=== PATIENT | male | born 1995 | race Two or more races ===

== ENCOUNTER 2020-12-10 12:10 | Emergency (ER) | payer MEDICAID, OTHER ==
[~2020-12-10] VITALS: Ht 170.2 cm; Wt 91.0 kg
[2020-12-10 13:50] LABS: Urine Bacteria NONE SEEN /hpf (None Seen); Urine Blood Negative /uL (Negative); Urine Mucus FEW (None Seen); Urine Specific Gravity 1.032 (1.001-1.035); Urine WBC 1 /hpf (0 - 3)
[2020-12-10 13:52] LABS: Alcohol, Urine < 3.0 mg/dL (0-10); Amphetamine Screen, Urine NEGATIVE (NEGATIVE); Barbiturate Scree,Urine NEGATIVE (NEGATIVE); Benzodiazephine Screen, Urine NEGATIVE (NEGATIVE); Cannabinoid Screen, Urine NEGATIVE (NEGATIVE); Cocaine Screen, Urine NEGATIVE (NEGATIVE); Opiate Scree,Urine NEGATIVE (NEGATIVE); Phencyclidine Screen, Urine NEGATIVE (NEGATIVE)
[2020-12-10 14:08] LABS: Basophils # (auto) 0 10 ^3/uL (0-0.2); Basophils % (auto) 0.5 % (0.0-2.0); Eosinophils # (auto) 0.3 10 ^3/uL (0-0.8); Eosinophils % (auto) 3.4 % (0.0-7.0); Hematocrit 46.9 % (41.0-53.0); Hemoglobin 16.5 g/dL (13.5-17.5); Lymphocytes # (auto) 2.2 10 ^3/uL (0.4-5.4); Lymphocytes % (auto) 22.2 % (10.0-50.0); Mean Corpuscular Hemoglobin 29.4 pg (28.0-32.0); Mean Corpuscular Hgb Conc. 35.2 g/dL (32.0-36.0); Mean Corpuscular Volume 83.4 fL (80.0-100.0); Monocytes # (auto) 0.6 10 ^3/uL (0-1.3); Monocytes % (auto) 6.3 % (0.0-12.0); Neutrophils # (auto) 6.6 10 ^3/uL (1.6-8.6); Neutrophils % (auto) 67.6 % (37.0-80.0); Nucleated Red Blood Cells % 0.9 %; Red Blood Cells 5.63 10^6/uL (4.5-5.90); Red Cell Distribution Width 13.2 % (11.8-14.3); White Blood Cell 9.8 10^3/uL (4.4-10.8)
[2020-12-10 14:33] LABS: Albumin 4.5 g/dL (3.4-5.0); Anion Gap 6 (5-15); Blood Urea Nitrogen 15 mg/dL (7-18); Calcium 8.6 mg/dL (8.5-10.1); Carbon Dioxide 24 mmol/L (21-32); Chloride 109 mmol/L (98-107); Glucose 84 mg/dL (74-106); Potassium 4.1 mmol/L (3.5-5.1); Sodium 139 mmol/L (136-145)
[2020-12-10 14:38] LABS: Alanine Aminotransferase 27 U/L (16-61); Alkaline Phosphatase 70 U/L (45-117); Aspartate Aminotransferase 16 U/L (15-37); BUN/Creatinine Ratio 17.9; Bilirubin, Total 0.8 mg/dL (0.2-1.0); GFR African American 143 mL/min; GFR Non-African American 118 mL/min; Total Protein 8.5 g/dL (6.4-8.2)
[2020-12-10 16:29] VITALS: BP 116/61
== END 2020-12-10 16:32 | disposition home or self-care (01) ==
LOC: ER 12:10
DX: S16.1XXA Strain of muscle, fascia and tendon at neck level, initial encounter (principal); M62.838 Other muscle spasm; E78.5 Hyperlipidemia, unspecified; X58.XXXA Exposure to other specified factors, initial encounter; Y93.89 Activity, other specified; Y92.89 Other specified places as the place of occurrence of the external cause; Y99.8 Other external cause status
CPT/HCPCS: 36415; 72040; 80053; 80307; 81001; 84484; 85025; 93005

== ENCOUNTER 2022-05-14 12:23 | Emergency (ER) | payer MEDICAID ==
[~2022-05-14] VITALS: Ht 172.7 cm; Wt 88.6 kg
[2022-05-14 12:23] VITALS: BP 116/69
[2022-05-14] MEDS ORDERED: PRED20TA2 PO (14:49)
[2022-05-14] MEDS ORDERED: AMOX-277 PO (14:49)
== END 2022-05-14 15:12 | disposition home or self-care (01) ==
LOC: ER 12:23
DX: J06.9 Acute upper respiratory infection, unspecified (principal); E78.5 Hyperlipidemia, unspecified; Z20.822 Contact with and (suspected) exposure to COVID-19
CPT/HCPCS: 36415; 71046; 87804

== ENCOUNTER 2022-12-12 10:03 | Emergency (ER) | payer MEDICAID ==
[~2022-12-12] VITALS: Ht 170.2 cm; Wt 102.2 kg
[~2022-12-12 10:03] MED LIST: AMOX-277 PO; PRED20TA2 PO
[2022-12-12 10:20] VITALS: BP 126/83
[2022-12-12] MEDS ORDERED: AZIT500T66 PO (11:21)
[2022-12-12] MEDS ORDERED: PROM1SOL4 PO (11:21)
== END 2022-12-12 11:32 | disposition home or self-care (01) ==
LOC: ER 10:03
DX: J03.90 Acute tonsillitis, unspecified (principal); J20.9 Acute bronchitis, unspecified; F17.210 Nicotine dependence, cigarettes, uncomplicated; E78.5 Hyperlipidemia, unspecified
CPT/HCPCS: 71045

== ENCOUNTER 2023-02-04 18:00 | Emergency (ER) | payer MEDICAID, OTHER ==
[~2023-02-04] VITALS: Ht 170.2 cm; Wt 99.0 kg
[~2023-02-04 18:00] MED LIST changes: +AZIT500T66 PO; +PROM1SOL4 PO
[2023-02-04 19:13] VITALS: BP 105/75
== END 2023-02-04 21:47 | disposition left against medical advice (07) ==
LOC: ER 18:00
DX: S61.451A Open bite of right hand, initial encounter (principal); Z53.21 Procedure and treatment not carried out due to patient leaving prior to being seen by health care provider; W55.01XA Bitten by cat, initial encounter; Y93.89 Activity, other specified; Y92.89 Other specified places as the place of occurrence of the external cause; Y99.8 Other external cause status

== ENCOUNTER 2023-02-05 11:11 | Emergency (ER) | payer OTHER ==
[~2023-02-05] VITALS: Ht 170.2 cm; Wt 101.2 kg
[2023-02-05 11:43] VITALS: BP 125/75
[2023-02-05] MEDS ORDERED: TETANUS-DIPTH-ACEL PERTUSSIS 0.5ML SYR Tdap IM ONE (11:45)
== END 2023-02-05 12:10 | disposition home or self-care (01) ==
LOC: ER 11:11
DX: S60.511A Abrasion of right hand, initial encounter (principal); F17.210 Nicotine dependence, cigarettes, uncomplicated; Z88.1 Allergy status to other antibiotic agents; Z88.6 Allergy status to analgesic agent; W55.03XA Scratched by cat, initial encounter; Y93.89 Activity, other specified; Y92.89 Other specified places as the place of occurrence of the external cause; Y99.8 Other external cause status
CPT/HCPCS: 90471; 90715

== ENCOUNTER 2023-12-05 22:53 | Emergency (ER) | payer MEDICAID, OTHER ==
[~2023-12-05] VITALS: Ht 172.7 cm; Wt 103.5 kg
[~2023-12-05 22:53] MED LIST changes: -AMOX-277 PO; +AMOX875T4 PO
[2023-12-05 23:10] VITALS: BP 134/67; PULSE 81; TEMP 98.1
[2023-12-05] MEDS: ALBUTEROL SULF 2.5 MG/0.5ML(0.5%) NEB SOLN NEB ONE (23:39)
[2023-12-05] MEDS: IPRATROPIUM BROM 0.5 MG/2.5ML INH SOL NEB ONE (23:39)
[2023-12-05] MEDS: DexAMETHasone SOD PHOS 10MG/1ML VIAL INJ IM ONE (23:40)
[2023-12-05 23:41] VITALS: RESP 20; O2SAT 95
[2023-12-06] MEDS ORDERED: PRED20TA2 PO (03:53)
== END 2023-12-06 04:15 | disposition home or self-care (01) ==
LOC: ER 22:53
DX: J06.9 Acute upper respiratory infection, unspecified (principal); M54.9 Dorsalgia, unspecified; R07.89 Other chest pain; R06.02 Shortness of breath; E78.5 Hyperlipidemia, unspecified; F17.210 Nicotine dependence, cigarettes, uncomplicated
CPT/HCPCS: 71045; 94640; 99283; J1100; J7644

== ENCOUNTER 2024-08-30 20:39 | Emergency (ER) | payer MEDICAID, SELFPAY ==
[~2024-08-30] VITALS: Ht 170.2 cm; Wt 100.0 kg
[2024-08-30 20:40] VITALS: BP 144/91
--- NOTE | 2024-08-30 20:58 | ED.PDOC ---
HPI Comments PAOLO 29 year old male presents to the ED with the chief complaint of chest pain onset 2 days. Patient states he was at home when he noticed a sharp/ pulsing sensation on his chest, it began 2 days ago and has been intermittent, rates his pain a 6/10. Patient also noticed shortness of breath. He recently ran a 5k mile and noticed now he cannot go up a flight of stairs without experiencing shortness of breath. During assessment, O2 sat was 94%, blood pressure was 144/91. He denies any trauma, injury, recent travel, fevers, nausea, vomiting, diarrhea. No other symptoms or modifying factors present at this time. Time Seen by MD: 20:50 Primary Care Provider: DELILAH Reviewed Notes: Nurses Notes, Medications, Allergies Allergies: Coded Allergies: NO KNOWN ALLERGIES (Unverified , 12/10/20) Home Meds Active Scripts Prednisone (Prednisone) 20 Mg Tab, 40 MG PO ONCE for 5 Days, #10 MG Prov:KIRSTY ESCALONA [facility] 12/06/23 Promethazine-Dm (Promethazine Dm 6.25-15 mg/5Ml) 1 Yoselin Yoselin, 5 ML PO TID, #180 ML Prov:JUANA GUZMÁN 12/12/22 Azithromycin (Azithromycin) 500 Mg Tab, 1 TAB PO DAILY, #5 TAB Prov:JUANA GUZMÁN 12/12/22 Prednisone (Prednisone) 20 Mg Tab, 20 MG PO BID for 5 Days, #10 MG 0 Refills Prov:MARSHALL SEO 05/14/22 Amoxicillin & Pot Clavulanate (Amoxicillin/Potassium Cla) 875 Mg Tab, 1 TAB PO BID for 7 Days, #14 TAB 0 Refills Prov:MARSHALL SEO 05/14/22 Information Source: Patient Mode of Arrival: Ambulatory Severity: Moderate Duration: Intermittent Prehospital treatment: None Location: Chest (L) Quality: Other (pulsing ) Cardiac Risk Factors: None PE Risk Factors: None History of: None Associated Signs and Symptoms: SOB Past Medical History PAST MEDICAL HISTORY: High Lipids Surgical History: Denies all surgeries Family History Family History: Reviewed,noncontributory to illness Social History Smoker: Cigarettes, Other Alcohol: Occasionally Drugs: Denies Drug Use Lives In: Home Constitutional: denies: chills, diaphoresis, fatigue, fever, malaise, sweats, weakness, others EENTM: denies: blurred vision, double vision, ear bleeding, ear discharge, ear drainage, ear pain, ear ringing, eye pain, eye redness, hearing loss, mouth pain, mouth swelling, nasal discharge, nose bleeding, nose congestion, nose pain, photophobia, tearing, throat pain, throat swelling, voice changes, others Respiratory: reports: shortness of breath; denies: cough, hemoptysis, orthopnea, SOB at rest, SOB with excertion, stridor, wheezing, others Cardiovascular: reports: chest pain; denies: dizzy spells, diaphoresis, Dyspnea on exertion, edema, irregular heart beat, left arm pain, lightheadedness, palpitations, PND, syncope, others Gastrointestinal: denies: abdomen distended, abdominal pain, blood streaked bowels, constipated, diarrhea, dysphagia, difficulty swallowing, hematemesis, melena, nausea, poor appetite, poor fluid intake, rectal bleeding, rectal pain, vomiting, others Genitourinary: denies: burning, dysuria, flank pain, frequency, hematuria, incontinence, penile discharge, penile sore, pain, testicle pain, testicle swelling, urgency, others Neurological: denies: dizziness, fainting, headache, left sided numbness, left sided weakness, numbness, paresthesia, pre-existing deficit, right sided num bness, right sided weakness, seizure, speech problems, tingling, tremors, weakness, others Musculoskeletal: denies: back pain, gout, joint pain, joint swelling, muscle pain, muscle stiffness, neck pain, others Integumetry: denies: bruises, change in color, change in hair/nails, dryness, laceration, lesions, lumps, rash, wounds, others Allergic/Immunocompromised: denies: Difficulty Healing, Frequent Infections, Hives, Itching, others Hematologic/Lymphatic: denies: anemia, blood clots, easy bleeding, easy bruising, swollen glands, others Endocrine: denies: excessive hunger, excessive sweating, excessive thirst, excessive urination, flushing, intolerance to cold, intolerance to heat, unexplained weight gain, unexplained weight loss, others Psychiatric: denies: anxiety, bipolar disorder, depression, hopeless, panic disorder, schizophrenia, sleepless, suicidal, others All Other Systems: Reviewed and Negative Physical Exam General Appearance: No Apparent Distress HEENT: Normal ENT Inspection, Pharynx Normal, TMs Normal Neck: Full Range of Motion, Non-Tender, Normal, Normal Inspection Respiratory: Chest Non-Tender, Lungs Clear, No Accessory Muscle Use, No Respiratory Distress, Normal Breath Sounds Cardiovascular: No Edema, No JVD, No Murmur, No Gallop, Normal Peripheral Pulses, Regular Rate/Rhythm Breast Exam: Deferred Gastrointestinal: No Organomegaly, Non Tender, No Pulsatile Mass, Normal Bowel Sounds, Soft Genitalia: Deferred Pelvic: Deferred Rectal: Deferred Extremities: No calf tenderness, Normal capillary refill, Normal inspection, Normal range of motion, Non-tender, No pedal edema Musculoskeletal : Apperance: Normal Neurologic: Alert, handkerchief folder II-XII nml as Tested, No Motor Deficits, Normal Affect, Normal Mood, No Sensory Deficits Cerebellar Function: Normal Reflexes: Normal Skin: Dry, Normal Color, Warm Lymphatic: No Adenopathy EKG EKG : Pulse Rate (adult): 70 [place]: Normal Cardiac Rhythm: NSR (70 bpm) ST: Nonsp Was a procedure done? Was a procedure done?: No CP Differential Dx Differential Diagnosis: Angina, MO, Pulmonary Embolus Differential Diagnosis: CHF Differential Diagnosis: Pericarditis X-Ray, Labs, Meds, VS Vital Signs Date Time Temp Pulse Resp B/P (MAP) Pulse Ox O2 Delivery O2 Flow Rate FiO2 08/30/24 20:46 70 08/30/24 20:40 98.1 78 18 144/91 (108) 95 Lab Test 08/30/24 21:33 08/30/24 20:45 Range/Units Troponin I High Sensitivity Pending < 3 L </=54 ng/L D-Dimer, Quantitative < 0.19 0.0-0.49 mg/L FEU The chest x-ray shows:Findings/Impression: Frontal and lateral chest radiographs demonstrate no acute osseous or superficial soft tissue abnormalities. The trachea is midline. The cardiac silhouette and mediastinum are within normal limits. No pneumothorax, pleural effusions, or consolidations. The D-dimer is negative The troponin level is negative The patient was being discharged and will follow up with the primary care doctor The patient will return to the emergency department's the condition worsens. Images Reviewed?: Images reviewed and evaluated by me Time of 1ST Reevaluation: 21:20 Reevaluation 1ST: Unchanged Patient Education/Counseling: Diagnosis, Treatment, Prognosis, Need For Follow Up Family Education/Counseling: No Family Present Departure 1 Departure Time of Disposition: 21:48 Impression: Primary Impression: Non-cardiac chest pain Disposition: HOME / SELF CARE / HOMELESS Condition: Fair Discharged With: Self Critical Care Note Critical Care Time?: No Stability Stability form required: No Heart Score Heart Score: Heart Score Response (Comments) Value History Slightly Suspicious 0 EKG N/A 0 Age N/A 0 Risk Factors N/A 0 Troponin N/A 0 Total 0 I personally scribed for GRIS SMALLWOOD MD ([email or web address]) on 08/30/24 at 20:58. Electronically submitted by Ashley Camacho ([email or web address]). I personally scribed for GRIS SMALLWOOD MD ([email or web address]) on 08/30/24 at 20:59. [place] ctronically submitted by Ashley Camacho ([email or web address]). I personally scribed for GRIS SMALLWOOD MD ([email or web address]) on 08/30/24 at 21:00. Electronically submitted by Ashley Camacho ([email or web address]). GRIS SMALLWOOD MD Aug 30, 2024 20:58
--- NOTE | 2024-08-30 21:46 | DVH ---
EXAM: XY CHEST TWO VIEWS ROUTINE TECHNIQUE: Two radiographic views of the chest CLINICAL HISTORY: cp COMPARISON: CHEST TWO VIEWS ROUTINE on DOS: 05/14/22 Findings/Impression: Frontal and lateral chest radiographs demonstrate no acute osseous or superficial soft tissue abnorma lities. The trachea is midline. The cardiac silhouette and mediastinum are within normal limits. No pneumothorax, pleural effusions, or consolidations.
[2024-08-30 22:02] VITALS: PULSE 78; RESP 20; O2SAT 100
--- NOTE | 2024-08-31 05:50 | ECG ---
[facility] Test Date: 2024-08-30 Test Time: 21:39:51 Pat Name: SILVIA WARNER Department: ED Room: Gender: M Contract Administrator: MINDY : 1995 Requested By: GRIS SMALLWOOD Order Number: [id number] Reading MD: Diego Klein Measurements Intervals [place] Rate: 77 P: 47 MD: 151 QRS: 69 QRSD: 95 T: 52 QT: 379 QTc: 429 Interpretive Statements Sinus rhythm Electronically Signed On 09-02-2024 11:52:10 PST by Diego Klein Please click the below link to view image of tracing.
--- NOTE | 2024-08-31 13:39 | ECG ---
[facility] Test Date: 2024-08-30 Test Time: 20:46:56 Pat Name: SILVIA WARNER Department: ER Room: Gender: M Manager Immunology: HÉCTOR : 1995 Requested By: GRIS SMALLWOOD Order Number: [id number] Reading MD: Diego Klein Measurements Intervals [place] Rate: 70 P: 72 CT: 165 QRS: 68 QRSD: 96 T: 60 QT: 398 QTc: 430 Interpretive Statements Sinus rhythm Electronically Signed On 09-02-2024 11:52:06 PST by Diego Klein Please click the below link to view image of tracing.
== END 2024-08-30 22:06 | disposition home or self-care (01) ==
LOC: ER 20:39
DX: R07.89 Other chest pain (principal); F12.90 Cannabis use, unspecified, uncomplicated; E78.5 Hyperlipidemia, unspecified; Z79.899 Other long term (current) drug therapy
CPT/HCPCS: 36415; 71046; 84484; 85379; 93005

== ENCOUNTER 2025-09-19 12:48 | Emergency (ER) | payer SELFPAY ==
[~2025-09-19] VITALS: Ht 170.2 cm; Wt 100.0 kg
--- NOTE | 2025-09-19 13:41 | ED.PDOC ---
General HPI Comments This is a 30 year old male presenting to the ED with chief complaint of right testicular pain. Patient reports that he had been experiencing right lower back pain about 10 days ago, resolving over time. Patient relays that now since yesterday, the pain returned with associated right testicular pain and swelling. Moving makes it worse Denies testicular masses Denies fevers chills night sweats nausea vomiting unintentional weight loss Denies changes in stool pattern Denies trauma to the testicle no recent fall Denies previous STD Denies urethral discharge, burning with urination, urinating more frequently, blood in the urine Chief Complaint: Testicle Pain Time Seen by MD: 13:39 Primary Care Provider: DELILAH Reviewed notes: Nurses Notes, Medications, Allergies Allergies: Coded Allergies: NO KNOWN ALLERGIES (Unverified , 12/10/20) Home Meds Active Scripts Prednisone (Prednisone) 20 Mg Tab, 40 MG PO ONCE for 5 Days, #10 MG Prov:KIRSTY ESCALONA PAC 12/06/23 Promethazine-Dm (Promethazine Dm 6.25-15 mg/5Ml) 1 Yoselin Yoselin, 5 ML PO TID, #180 ML Prov:JUANA GUZMÁN 12/12/22 Azithromycin (Azithromycin) 500 Mg Tab, 1 TAB PO DAILY, #5 TAB Prov:JUANA GUZMÁN 12/12/22 Prednisone (Prednisone) 20 Mg Tab, 20 MG PO BID for 5 Days, #10 MG 0 Refills Prov:MARSHALL SEO 05/14/22 Amoxicillin & Pot Clavulanate (Amoxicillin/Potassium Cla) 875 Mg Tab, 1 TAB PO BID for 7 Days, #14 TAB 0 Refills Prov:MARSHALL SEO 05/14/22 Information Source: Patient Mode of Arrival: Ambulatory Severity: Moderate Timing: Days Duration: Since onset Prehospital treatment: None Onset: Spontaneous Location male: R Scrotum Penile discharge: None Modifying factors: None Past Medical History PAST MEDICAL HISTORY: High Lipids Surgical History: Denies all surgeries Family History Family History: Reviewed,noncontributory to illness Social History Smoker: Cigarettes, Other Alcohol: Occasionally Drugs: Denies Drug Use Lives In: Home Constitutional: denies: chills, diaphoresis, fatigue, fever, malaise, sweats, weakness, others EENTM: denies: blurred vision, double vision, ear bleeding, ear discharge, ear drainage, ear pain, ear ringing, eye pain, eye redness, hearing loss, mouth pain, mouth swelling, nasal discharge, nose bleeding, nose congestion, nose pain, photophobia, tearing, throat pain, throat swelling, voice changes, others Respiratory: denies: cough, hemoptysis, orthopnea, SOB at rest, shortness of breath, SOB with excertion, stridor, wheezing, others Cardiovascular: denies: chest pain, dizzy spells, diaphoresis, Dyspnea on exertion, edema, irregular heart beat, left arm pain, lightheadedness, palpitations, PND, syncope, others Gastrointestinal: denies: abdomen distended, abdominal pain, blood streaked bowels, constipated, diarrhea, dysphagia, difficulty swallowing, hematemesis, melena, nausea, poor appetite, poor fluid intake, rectal bleeding, rectal pain, vomiting, others Genitourinary: reports: testicle pain, testicle swelling; denies: burning, dysuria, flank pain, frequency, hematuria, incontinence, penile discharge, penile sore, pain, urgency, others Neurological: denies: dizziness, fainting, headache, left sided numbness, left sided weakness, numbness, paresthesia, pre-existing deficit, right sided numbness, right sided weakness, seizure, speech problems, tingling, tremors, weakness, others Musculoskeletal: denies: back pain, gout, joint pain, joint swelling, muscle pain, muscle stiffness, neck pain, others Integumetry: denies: bruises, change in color, change in hair/nails, dryness, laceration, lesions, lumps, rash, wounds, others Allergic/Immunocompromised: denies: Difficulty Healing, Frequent Infections, Hives, Itching, others Hematologic/Lymphatic: denies: anemia, blood clots, easy bleeding, easy bruising, swollen glands, others Endocrine: denies: excessive hunger, excessive sweating, excessive thirst, excessive urination, flushing, intolerance to cold, intolerance to heat, unexplained weight gain, unexplained weight loss, others Psychiatric: denies: anxiety, bipolar disorder, depression, hopeless, panic disorder, schizophrenia, sleepless, suicidal, others All Other Systems: Reviewed and Negative Physical Exam General Appearance: No Apparent Distress, Normal HEENT: Normal ENT Inspection, Pharynx Normal, TMs Normal Neck: Full Range of Motion, Non-Tender, Normal, Normal Inspection Respiratory: Chest Non-Tender, Lungs Clear, No Accessory Muscle Use, No Respiratory Distress, Normal Breath Sounds Cardiovascular: No Edema, No JVD, No Murmur, No Gallop, Normal Peripheral Pulses, Regular Rate/Rhythm Breast Exam: Deferred Gastrointestinal: No Organomegaly, Non Tender, No Pulsatile Mass, Normal Bowel Sounds, Soft Genitalia: Other (Rt testicle [id number] swelling and TTP. No abscess formation, no erythema, no high riding testicle.) Pelvic: Deferred Rectal: Deferred Extremities: No calf tenderness, Normal capillary refill, Normal inspection, Normal range of motion, Non-tender, No pedal edema Musculoskeletal : Apperance: Normal Neurologic: Alert, custom marine canvas fabricator II-XII nml as Tested, No Motor Deficits, Normal Affect, Normal Mood, No Sensory Deficits Cerebellar Function: Normal Reflexes: Normal Skin: Dry, Normal Color, Warm Lymphatic: No Adenopathy Was a procedure done? Was a procedure done?: No Differential Diagnosis Kidney stone (Female): N/A Kidney stone (Male): N/A Penile/Scrotal: Epidiymitis, UTI, Hydrocele X-Ray, Labs, Meds, VS Vital Signs Date Time Temp Pulse Resp B/P (MAP) Pulse Ox O2 Delivery O2 Flow Rate FiO2 09/19/25 16:04 78 17 97 Room Air 09/19/25 16:04 98.7 78 17 137/67 (90) 97 98.7 09/19/25 12:52 97.6 77 18 121/83 98 97.6 [place] [id number] Ph: [phone] DIAGNOSTIC IMAGING Diagnostic Imaging Report : [id number] Signed PATIENT: SILVIA WARNERDROACCT: [id number] UNIT: [id number] : 1995 LOC: ER ROOM / BED: / AGE / SEX: 30 / M ADM STATUS: REG ER SERVICE 1331 ORDERING PHYSICIAN: UCHE DAVIDSON NP PROCEDURE(s): TESUS - TESTICULAR ULTRASOUND REASON: R testicular pain ORDER NUMBER(s): [id number], ACCESSION NUMBER(s): [id number] SCROTAL ULTRASOUND REASON FOR EXAM: Right testicular pain COMPARISON: None TECHNIQUE: Real-time sector scans and duplex color flow Doppler imaging of the scrotal contents was performed. FINDINGS: The left testicle measures 4.3 x 2.3 x 3.2 cm. The right testicle measures 4.8 x 2.6 x 2.8 cm. No testicular mass is identified. Expected flow is seen within the right and left testicle. There is no hyperemia. There is no evidence of hydrocele or varicocele. The epididymides are normal in size. There are a few tiny left epididymal head cysts. IMPRESSION: No evidence of testicular torsion. The testes appear within normal limits. ATED BY: RIK MCCAULEY MD DICTATED DATE/TIME: 09/19/251434 SIGNED BY: RIK MCCAULEY MD SIGNED DATE/TIME: 09/19/251434 CC: X-Ray, Labs, Meds, VS Comment This is a 30 year old male presenting to the ED with chief complaint of right testicular pain. Patient arrives alert and oriented, ABC's intact, afebrile, vital signs stable, saturating well in room air Diagnostic imaging ordered by me and results interpreted by radiology : Testicular US - physical exam notable for normal cremasteric reflex - scrotal ultrasound showed no evidence of torsion - unclear etiology of patient's pain, however workup in the ED has been reassuring - re-examination w/ no concerning or worsening findings - discharge to home, recommended close pcp f/unit, return precautions discussed Additional MDM Review of External, Non-ED records: External records reviewed. Discussion with independent historian (EMS, family) history obtained from the patient/parents (if applicable) at bedside Chronic conditions affecting care: None Social determinants of health affecting care: None Consideration of admission (observation or admission): I considered escalation of care to admission for this patient, however given the reassuring workup, the patient is safe for outpatient management. Discussion with the Radiology: No Tests considered but not performed: None Prescription medication considered but not given: None Images Reviewed?: Images reviewed and evaluated by me Time of 1ST Reevaluation: 14:00 Reevaluation 1ST: Improved Patient Education/Counseling: Diagnosis, Treatment Family Education/Counseling: No Family Present SEPSIS Sepsis Screen Date sepsis recognized/suspect: Sep 19, 2025 Time Sepsis recognized/suspect: 1253 Recent Procedure: No On Antibiotic Therapy: No Respiratory Rate >20: No Heart Rate >90: No Temp<36 C (96.8 F) or >38.3 C: No SBP <90 or MAP <65 mmHG: No New Acute Mental Status Change: No Is the patient on CPAP, BIPAP,: No Physician Orders Testicular Ultrasound (09/19/25 13:31) Vital Signs Date Time Temp Pulse Resp B/P (MAP) Pulse Ox O2 Delivery O2 Flow Rate FiO2 09/19/25 16:04 78 17 97 Room Air 09/19/25 16:04 98.7 78 17 137/67 (90) 97 98.7 09/19/25 12:52 97.6 77 18 121/83 98 97.6 Departure 1 Departure Time of Disposition: 15:01 Impression: Primary Impression: Right testicular pain Additional Impression: Lumbar radiculopathy Disposition: HOME / SELF CARE / HOMELESS Condition: Stable Discharged With: Self Critical Care Note Critical Care Time?: No Stability Stability form required: No Heart Score Heart Score: Heart Score Response (Comments) Value History N/A 0 EKG N/A 0 Age N/A 0 Risk Factors N/A 0 Troponin N/A 0 Total 0 I personally scribed for UCHE DAVIDSON [place] ([email or web address]) on 09/19/25 at 13:41. Electronically submitted by Stevie Sal ([email or web address]). I personally scribed for UCHE DAVIDSON [place] ([email or web address]) on 09/19/25 at 14:59. Electronically submitted by Stevie Sal ([email or web address]). UCHE DAVIDSON [place] Sep 19, 2025 13:41
--- NOTE | 2025-09-19 14:38 | DVH ---
SCROTAL ULTRASOUND REASON FOR EXAM: Right testicular pain COMPARISON: None TECHNIQUE: Real-time sector scans and duplex color flow Doppler imaging of the scrotal contents was performed. FINDINGS: The left testicle measures 4.3 x 2.3 x 3.2 cm. The right testicle measures 4.8 x 2.6 x 2.8 cm. No testicular mass is identified. Expected flow is seen within the right and left testicle. There is no hyperemia. There is no evidence of hydrocele or varicocele. The epididymides are normal in size. There are a few tiny left epididymal head cysts. IMPRESSION: No evidence of testicular torsion. The testes appear within normal limits.
[2025-09-19 16:04] VITALS: BP 137/67; PULSE 78; RESP 17; TEMP 98.7; O2SAT 97
== END 2025-09-19 15:19 | disposition home or self-care (01) ==
LOC: ER 12:48
DX: N50.811 Right testicular pain (principal); M54.16 Radiculopathy, lumbar region; F17.210 Nicotine dependence, cigarettes, uncomplicated; Z79.52 Long term (current) use of systemic steroids
CPT/HCPCS: 76870